=== PATIENT | male | born 1985 | race Caucasian/White ===

== ENCOUNTER 2018-09-08 01:47 | Outpatient (CLI) | payer BC, SELFPAY ==
[2018-09-08 11:39] LABS: Kit/Specimen SENT
[2018-09-08 12:44] LABS: ESR 9 MM/HR (0-15)
[2018-09-08 12:59] LABS: Folate 18.7 ng/mL (8.6-20.0); Magnesium 2.4 mg/dL (1.8-2.4); Vitamin B12 718 pg/mL (193-986)
[2018-09-08 16:40] LABS: CRP, High Sensitivity 0.29 mg/L
[2018-09-09 11:06] LABS: Lyme Ab w Rflx to Lyme Confirm Negative
[2018-09-09 11:45] LABS: Rheumatoid Factor <8 IU/mL (<12.5)
[2018-09-09 13:45] LABS: ANA Interpretation Negative (NEGAT)
[2018-09-09 16:08] LABS: G-6-PD, Qn, RBC 12.2 U/g Hb (8.8 - 13.4)
[2018-09-09 23:19] LABS: Spotted Fever Group Ab IgG <1:64 (<1:64); Spotted Fever Group Ab IgM <1:64 (<1:64)
[2018-09-09 23:23] LABS: Ehrlichia Chaffeensis(HME) IgG <1:64 titer (<1:64)
[2018-09-10 16:40] LABS: Bartonella Henselae IgG <1:128 titer (<1:128); Bartonella Henselae IgM <1:20 titer (<1:20); Bartonella Quintana IgG <1:128 titer (<1:128); Bartonella Quintana IgM <1:20 titer (<1:20)
[2018-10-01 10:27] LABS: C4a Level by RIA 1320 ng/mL (0-2830)
== END 2018-09-08 02:07 ==
PROVIDERS: Family Medicine; PCP Naturopath; Visit Provider Naturopath
DX: G44.89 Other headache syndrome (principal); R53.83 Other fatigue; A69.20 Lyme disease, unspecified
CPT/HCPCS: 36415; 85652; 86003; 86141; 82607; 82746; 82955; 83735; 86038; 86160; 86431; 86611; 86618; 86631; 86632; 86757

== ENCOUNTER 2019-03-19 10:38 | Outpatient (CLI) | payer OTHER, SELFPAY ==
[2019-03-19 11:48] LABS: Abs Immature Grans 0.01 k/cumm (0.0-0.09); Absolute Basophil Count 0.01 k/cumm (0.0-0.2); Absolute Eosinophil Count 0.09 k/cumm (0.0-0.7); Absolute Lymphocyte Count 1.46 k/cumm (1.2-3.4); Absolute Neutrophil Count 2.76 k/cumm (1.2-6.7); Basophils % 0.2; Eosinophils % 1.8; HCT 43.4 % (40.0-50.0); HGB 14.4 g/dL (13.5-17.5); Immature Grans % 0.2; Lymphocytes % 29.6; Mean Corp. HGB Concentration 33.2 g/dL (32.0-36.0); Mean Corpuscular Volume 93.3 fL (80-95); Mean Platelet Volume 11.6 fL (8.0-11.0); Monocytes % 12.2; Platelet Count 180 x1000/uL (130-400); RBC 4.65 m/cumm (4.50-6.00); RBC Distribution Width 12.9 % (11.8-14.1); White Blood Cell Count 4.93 k/cumm (4.4-10.8)
[2019-03-19 12:51] LABS: ALT 35 U/L (12-78); AST 22 U/L (15-37); Albumin 4.5 g/dL (3.4-5.0); Alkaline Phosphatase 67 U/L (46-116); Anion Gap 8.6 mmol/L (3-11); BUN 19 mg/dL (7-18); Bilirubin, Total 1.8 mg/dL (0.2-1.0); CO2 30.4 mmol/L (21.0-32.0); CREATININE 0.86 mg/dL (0.70-1.30); Calcium 9.4 mg/dL (8.5-10.1); Chloride 101 mmol/L (98-107); Glucose 90 mg/dL (70-100); Potassium 4.1 mmol/L (3.5-5.1); Sodium 140 mmol/L (136-145); Total Protein 8.1 g/dL (6.4-8.2)
== END 2019-03-19 10:58 ==
PROVIDERS: PCP Naturopath; Visit Provider Family Medicine
DX: A69.20 Lyme disease, unspecified (principal); G44.89 Other headache syndrome; R53.83 Other fatigue
CPT/HCPCS: 36415; 80053; 85025